=== PATIENT | female | born 1945 | race Caucasian/White ===

== ENCOUNTER 2017-07-21 07:15 | Day surgery (SDC) | payer OTHER ==
[2017-07-18 16:59] LABS: Basophils # (auto) 0.1 uL; Basophils % (auto) 0.9 % (0.0-2.0); Eosinophils # (auto) 0.1 uL; Eosinophils % (auto) 1.2 % (0.0-7.0); Hematocrit 40.2 % (36.0-46.0); Hemoglobin 13.5 g/dL (12.2-16.2); Lymphocytes # (auto) 1.7 uL; Lymphocytes % (auto) 16.8 % (10.0-50.0); Mean Corpuscular Hemoglobin 29.8 pg (28.0-32.0); Mean Corpuscular Hgb Conc. 33.7 g/dL (32.0-36.0); Mean Corpuscular Volume 88.3 fL (80.0-100.0); Monocytes # (auto) 0.8 uL; Monocytes % (auto) 7.9 % (0.0-12.0); Neutrophils # (auto) 7.4 uL; Neutrophils % (auto) 73.2 % (37.0-80.0); Nucleated Red Blood Cells % 0.1 %; Platelet Count (auto) 309 10^3/uL (140-450); Red Cell Distribution Width 15.9 % (11.6-16.0); White Blood Cell 10.2 10^3/uL (4.4-10.8)
[2017-07-18 17:00] LABS: Urine Bilirubin Negative (Negative); Urine Blood Negative /uL (Negative); Urine Color Yellow (Yellow); Urine Glucose Normal (Normal); Urine Ketone Negative (Negative); Urine Nitrite Negative (Negative); Urine RBC <1 /hpf (0 - 4); Urine Squamous Epithelial Cell FEW /hpf (<5); Urine Urobilinogen Normal (Negative); Urine pH 5.5 (5.0-8.0)
[2017-07-18 17:04] LABS: INR 0.94 (0.9-1.15); Partial Thromboplastin Time 24.9 sec (22.64-33.71); Prothrombin Time 10.2 sec (9.37-12.3)
[2017-07-18 17:10] LABS: Albumin 3.7 g/dL (3.4-5.0); BUN/Creatinine Ratio 15.9; Calcium 9.6 mg/dL (8.5-10.1); Potassium 4.2 mmol/L (3.5-5.1)
[2017-07-18 17:12] LABS: Bilirubin, Total 0.2 mg/dL (0.2-1.0); Total Protein 7.5 g/dL (6.4-8.2)
[~2017-07-21] VITALS: Ht 157.5 cm; Wt 48.5 kg
[~2017-07-21 07:15] MED LIST: ALPR0.25 PO; ATOR10TA52 PO; BIMA0.01 EACHEYE; CHOL4POW2 PO; ESTR10IN2 IM; FLUT1SPR9; HYDR25TA4 PO; LANS30CA63 PO; LEVO112T4 PO; METH1TAB PO; RISE150T PO
[2017-07-21] MEDS ORDERED: ceFAZolin 1GM/50ML D5W 50 ML IV ONE (07:54)
[2017-07-21] MEDS ORDERED: fentaNYL CITRATE 100 MCG/2 ML VL ONE (08:31)
[2017-07-21] MEDS ORDERED: MEPERIDINE HCL (50 MG/ML) 1 ML VIAL ONE (08:31)
[2017-07-21] MEDS ORDERED: MIDAZOLAM HCL 1MG/1ML-2 ML VIAL ONE (08:31)
[2017-07-21] MEDS ORDERED: PROPOFOL 10 MG/ML 20 ML IV ONE (08:32)
[2017-07-21] MEDS ORDERED: SODIUM CHLORIDE LOCK 10 ML ONE (08:32)
[2017-07-21] MEDS ORDERED: METOCLOPRAMIDE HCL 5MG/ml INJ 2ml VIAL ONE (08:32)
[2017-07-21] MEDS ORDERED: LIDOCAINE W/ EPINEPHRINE 1 % INJ 30ML ONE (08:39)
[2017-07-21] MEDS ORDERED: CONJ ESTROGENS 0.625MG/GM VAG CRM 30GM PV ONE (08:39)
[2017-07-21] MEDS ORDERED: BUPIVACAINE 0.25% INJ 50ML VIAL ONE (08:39)
[2017-07-21] MEDS ORDERED: GELATIN 1 SPONGE SIZE 100 TOP ONE (08:39)
[2017-07-21] MEDS ORDERED: METHYLENE BLUE 0.5% 5MG/ML 10ml AMP IV ONE (08:39)
[2017-07-21] MEDS ORDERED: LIDOCAINE 1% HCL (LOCAL ANESTH.) INJ 20ML MDV ONE (08:39)
[2017-07-21] MEDS ORDERED: VASOPRESSIN 20 UNIT/ML ONE (08:42)
[2017-07-21] MEDS ORDERED: ceFAZolin 1GM VL ONE (09:01)
[2017-07-21] MEDS ORDERED: ONDANSETRON HCL 4 MG/2 ML VIAL IV PRN (09:30)
[2017-07-21] MEDS ORDERED: KETOROLAC TROMETH 60MG/2ML VIAL IM ONE (10:28)
[2017-07-21] MEDS ORDERED: HYDROmorphone HCL 2 MG/ML VL IV PRN (11:00)
[2017-07-21] MEDS ORDERED: KETOROLAC TROMETH 30 MG/ML 1ML VIAL IV ONE (11:00)
[2017-07-21] MEDS ORDERED: METOCLOPRAMIDE HCL 5MG/ml INJ 2ml VIAL IV ONE (11:00)
[2017-07-21 12:00] VITALS: BP 152/70
== END 2017-07-21 12:12 | disposition home or self-care (01) ==
LOC: SUR 07:15
PROVIDERS: ATTEND Obstetrics & Gynecology
DX: N81.10 Cystocele, unspecified (principal); N81.6 Rectocele; N81.5 Vaginal enterocele; N39.3 Stress incontinence (female) (male); N89.8 Other specified noninflammatory disorders of vagina; I10 Essential (primary) hypertension; E03.9 Hypothyroidism, unspecified; F17.210 Nicotine dependence, cigarettes, uncomplicated; G43.909 Migraine, unspecified, not intractable, without status migrainosus; Z90.710 Acquired absence of both cervix and uterus
CPT/HCPCS: 36415; 57106; 57240; 57288; 80053; 81001; 85025; 85610; 85730; C1771; J0690; J1885; J2001; J2175; J2250; J2704; J2765; J3010; J3490

== ENCOUNTER 2018-04-27 08:04 | Day surgery (SDC) | payer OTHER ==
[2018-04-25 15:12] LABS: Basophils # (auto) 0.1 uL; Basophils % (auto) 0.6 % (0.0-2.0); Eosinophils # (auto) 0.1 uL; Eosinophils % (auto) 1.5 % (0.0-7.0); Hematocrit 39.7 % (36.0-46.0); Lymphocytes # (auto) 2.5 uL; Lymphocytes % (auto) 25.6 % (10.0-50.0); Mean Corpuscular Hemoglobin 27.4 pg (28.0-32.0); Mean Corpuscular Hgb Conc. 32.8 g/dL (32.0-36.0); Mean Corpuscular Volume 83.5 fL (80.0-100.0); Monocytes # (auto) 0.7 uL; Monocytes % (auto) 6.7 % (0.0-12.0); Neutrophils # (auto) 6.4 uL; Neutrophils % (auto) 65.6 % (37.0-80.0); Nucleated Red Blood Cells % 0.1 %; Platelet Count (auto) 360 10^3/uL (140-450); Red Blood Cells 4.75 10^6/uL (4.0-5.20); Red Cell Distribution Width 16.6 % (11.8-14.3); White Blood Cell 9.8 10^3/uL (4.4-10.8)
[2018-04-25 15:18] LABS: Urine Bacteria FEW /hpf (None Seen); Urine Blood Negative /uL (Negative); Urine Mucus FEW (None Seen); Urine Specific Gravity 1.007 (1.001-1.035); Urine WBC <1 /hpf (0 - 5)
[2018-04-25 15:29] LABS: INR 0.94 (0.9-1.15); Partial Thromboplastin Time 26.7 sec (23.78-33.04); Prothrombin Time 10.1 sec (9.27-12.13)
[2018-04-25 15:33] LABS: Albumin 3.3 g/dL (3.4-5.0); BUN/Creatinine Ratio 14.4; Bilirubin, Total 0.2 mg/dL (0.2-1.0); Calcium 8.8 mg/dL (8.5-10.1); Potassium 3.8 mmol/L (3.5-5.1); Total Protein 7.3 g/dL (6.4-8.2); Uric Acid 4.5 mg/dL (2.6-6.0)
[~2018-04-27] VITALS: Ht 157.5 cm; Wt 49.9 kg
[~2018-04-27 08:04] MED LIST changes: +METH-928 PO; -METH1TAB PO
[2018-04-27] MEDS ORDERED: ceFAZolin 1GM/50ML 50 ML IV ONE (09:34)
[2018-04-27] MEDS ORDERED: LIDOCAINE HCL 100 MG/5ML (2%) SYRG INJ IV ONE (09:35)
[2018-04-27] MEDS ORDERED: ETOMIDATE (2MG/ML) 20ML VIAL IV ONE (09:35)
[2018-04-27] MEDS ORDERED: ROCURONIUM 10MG/ML 10ML VIAL IV ONE (09:35)
[2018-04-27] MEDS ORDERED: SUCCINYLCHOLINE CHLORIDE 20 MG/ML 10ML VIAL IV ONE (10:23)
[2018-04-27] MEDS ORDERED: MIDAZOLAM HCL 1MG/1ML-2 ML VIAL ONE (10:29)
[2018-04-27] MEDS ORDERED: METOCLOPRAMIDE HCL 5MG/ml INJ 2ml VIAL ONE (10:30)
[2018-04-27] MEDS ORDERED: DEXAMETHASONE SOD PHOS 10MG/1ML VIAL INJ ONE (10:45)
[2018-04-27] MEDS ORDERED: fentaNYL CITRATE 100 MCG/2 ML VL ONE (10:45)
[2018-04-27] MEDS ORDERED: NALOXONE HCL 0.4 MG/ML VIAL IV PRN (11:00)
[2018-04-27] MEDS ORDERED: ONDANSETRON HCL 4 MG/2 ML VIAL IV ONE (11:00)
[2018-04-27] MEDS ORDERED: HYDROmorphone HCL 2 MG/ML VL IV PRN (11:00)
[2018-04-27] MEDS ORDERED: NEOSTIGMINE 1 MG/ML INJ (10mg/10ML VIAL) ONE (11:02)
[2018-04-27] MEDS ORDERED: GLYCOPYRROLATE 0.2 MG/ML 1ML VIAL ONE (11:02)
[2018-04-27 12:13] VITALS: BP 136/65
== END 2018-04-27 11:35 | disposition home or self-care (01) ==
LOC: SUR 08:04
PROVIDERS: ATTEND Urology
DX: C67.9 Malignant neoplasm of bladder, unspecified (principal); K21.9 Gastro-esophageal reflux disease without esophagitis; I10 Essential (primary) hypertension; J44.9 Chronic obstructive pulmonary disease, unspecified; F41.9 Anxiety disorder, unspecified; N39.0 Urinary tract infection, site not specified; E07.9 Disorder of thyroid, unspecified; H40.9 Unspecified glaucoma; Z79.899 Other long term (current) drug therapy; Z90.710 Acquired absence of both cervix and uterus; Z88.8 Allergy status to other drugs, medicaments and biological substances; Z79.891 Long term (current) use of opiate analgesic; Z98.890 Other specified postprocedural states
CPT/HCPCS: 36415; 52204; 52240; 80053; 81001; 84550; 85025; 85610; 85730; J0330; J0690; J1100; J2250; J2765; J3010